=== PATIENT | male | born 1955 | race Caucasian/White ===

== ENCOUNTER 2023-04-03 10:59 | Emergency (ER) | payer MEDICARE, BC ==
[2023-04-03] MEDS ORDERED: Bacitracin Oint 1 GM U/D Packet TOP ONE (12:20)
== END 2023-04-03 12:46 | disposition home or self-care (01) ==
LOC: JP.ED 10:59
DX: S01.81XA Laceration without foreign body of other part of head, initial encounter (principal); Z79.899 Other long term (current) drug therapy; Z88.0 Allergy status to penicillin; W20.8XXA Other cause of strike by thrown, projected or falling object, initial encounter
CPT/HCPCS: 12011; 12051; 70450; 99283